=== PATIENT | male | born 1990 | race Caucasian/White ===

== ENCOUNTER 2023-02-15 09:31 | Outpatient (CLI) | payer BC ==
[2023-02-15] MEDS ORDERED: Magnevist 469MG/ML 20 ML VIAL ONE (12:11)
== END 2023-02-15 09:32 | disposition home or self-care (01) ==
LOC: CSHMRI 09:31
PROVIDERS: ATTEND Otolaryngology Plastic Surgery within the Head & Neck
DX: H74.8X2 Other specified disorders of left middle ear and mastoid (principal); G93.89 Other specified disorders of brain; I65.22 Occlusion and stenosis of left carotid artery
CPT/HCPCS: 70553; A9579

== ENCOUNTER 2023-05-20 06:23 | Inpatient (IN) | payer BC ==
[2023-05-16 14:53] VITALS: BMI 27.3
[2023-05-20] MEDS ORDERED: Dexmedetomidine 200 MCG/2 ML VIAL ONE (06:34)
[2023-05-20] MEDS ORDERED: SUGAMMADEX SODIUM 200 MG/2 ML VIAL ONE (06:35)
[2023-05-20] MEDS ORDERED: Fentanyl 250 MCG/5 ML VIAL ONE (06:38)
[2023-05-20] MEDS ORDERED: Lidocaine 1% PF 5 ML VIAL ONE (06:38)
[2023-05-20] MEDS ORDERED: PROPOFOL 20 ML ONE ×2 (06:38→10:28)
[2023-05-20] MEDS ORDERED: Midazolam HCl 2 mg/2 ml Vial ONE (06:38)
[2023-05-20] MEDS ORDERED: Rocuronium Bromide 10 MG/ML (10ML VIAL) ONE (06:39)
[2023-05-20] MEDS ORDERED: Ondansetron PF 4 MG/2 ML Vial ONE (06:39)
[2023-05-20] MEDS ORDERED: Dexamethasone 20 MG/5 ML VIAL ONE (06:39)
[2023-05-20] MEDS ORDERED: Lidocaine 1% w/Epinephrine 1:100K 30 ML VIAL ONE (06:42)
[2023-05-20] MEDS ORDERED: EPINEPHrine 1 MG/ML AMP ONE (06:42)
[2023-05-20] MEDS ORDERED: Mannitol 12.5 GM/50 ML ONE ×2 (06:43→06:44)
[2023-05-20] MEDS ORDERED: oFLOXacin 0.3% Opth 5 ML BOT ONE (06:44)
[2023-05-20] MEDS ORDERED: manNITOL 20% 500 ML ONE (06:45)
[2023-05-20] MEDS ORDERED: levETIRAcetam 500 MG/5 ML VIAL SLOW IVP SCH (07:15)
[2023-05-20] MEDS ORDERED: fentaNYL 50 mcg/mL 1 mL Vial ONE (10:29)
[2023-05-20] MEDS ORDERED: Morphine 2 MG/ML VIAL SLOW IVP PRN (10:38)
[2023-05-20] MEDS ORDERED: Ondansetron PF 4 MG/2 ML Vial IVP PRN (10:38)
[2023-05-20] MEDS ORDERED: hydrALAZINE 20 MG/ML VIAL SLOW IVP PRN (10:38)
[2023-05-20] MEDS ORDERED: Acetaminophen 325 MG TAB PO PRN (10:38)
[2023-05-20] MEDS ORDERED: Acetaminophen/Codeine 30-300mg Tablet PO PRN ×2 (10:38)
[2023-05-20] MEDS ORDERED: diphenhydrAMINE 50 MG/ML VIAL IVP PRN (10:38)
[2023-05-20] MEDS: CEFAZOLIN 2 GM in Sodium Chloride 0.9% 100 ML IVPB SCH ×2 (12:29→18:46)
[2023-05-20] MEDS: Sodium Chloride 0.9% 1,000 ML IV SCH (12:29)
[2023-05-20] MEDS: Labetalol HCl 100 MG/20 ML VIAL SLOW IVP PRN ×2 (13:56→15:35)
[2023-05-20 15:35] VITALS: BP 161/115
[2023-05-21] MEDS: Sodium Chloride 0.9% 1,000 ML IV SCH (01:27)
[2023-05-21] MEDS ORDERED: levETIRAcetam 500 MG TAB PO SCH (21:00)
== END 2023-05-21 11:35 | disposition home or self-care (01) | DRG 26 ==
LOC: CSHERHOLD 06:23 → CSHIMCU 11:54
PROVIDERS: ADMIT Otolaryngology Plastic Surgery within the Head & Neck; ATTEND Otolaryngology Plastic Surgery within the Head & Neck
PROC: 0NQ00ZZ Repair Skull, Open Approach (ICD-10-PCS; principal; 2023-05-20)
PROC: 09B60ZZ Excision of Left Middle Ear, Open Approach (ICD-10-PCS; 2023-05-20)
PROC: 0NR Head and Facial Bones, Replacement (ICD-10-PCS; 2023-05-20)
PROC: 09U Ear, Nose, Sinus, Supplement (ICD-10-PCS; 2023-05-20)
PROC: 00U20KZ Supplement Dura Mater with Nonautologous Tissue Substitute, Open Approach (ICD-10-PCS; 2023-05-20)
DX: Q01.8 Encephalocele of other sites (principal); G96.00 Cerebrospinal fluid leak, unspecified; H93.8X2 Other specified disorders of left ear; H90.3 Sensorineural hearing loss, bilateral; F17.210 Nicotine dependence, cigarettes, uncomplicated; F10.90 Alcohol use, unspecified, uncomplicated; Z98.890 Other specified postprocedural states; Z87.81 Personal history of (healed) traumatic fracture
CPT/HCPCS: 88304; C1713; C1781; C1889; J0171; J0360; J1100; J2150; J2250; J2405; J2704; J3010; J3490; J7050; J7799